=== PATIENT | male | born 1950 | race Caucasian/White ===

== ENCOUNTER 2019-11-09 05:24 | Observation (INO) ==
--- NOTE | 2019-10-13 16:08 | PAT Medication Instructions ---
Medication Instructions Date of Service October 13, 2019 Home Medications cholecalciferol (vitamin D3) [Vitamin D3] 25 mcg PO QAM vitamin B complex 1 tab PO QAM DO NOT take the morning of surgery cholecalciferol (vitamin D3) [Vitamin D3] 25 mcg PO QAM vitamin B complex 1 tab PO QAM Other Notes If you have any questions please call us at [phone] or [phone] or [phone] or [phone]
--- NOTE | 2019-10-14 12:27 | Anesthesiology Consultation ---
Date of Service October 14, 2019 Assessment & Plan (1) Encounter for pre-operative examination: COVID Status: As of 10/13 assessment, patient denies travel to endemic area, known exposure/sick contacts, or symptoms of COVID19. Patient instructed that they and their household members must follow strict social distancing guidelines, wear a mask in public and avoid travel for 14 days prior to surgery. Preoperative COVID19 testing to be completed prior to surgery per surgeon's arra ngements. Patient made aware to self-isolate as much as possible between COVID testing and surgery. Chart Review Chart Review: Acceptable Risk for Surgery and Patient seen in Pre Admission Testing Teaching & Discussion Instructed NPO after midnight before surgery, except medications with 15 cc of water. Medication instructions provided according to the PAT guidelines. History Surgery Operation Date: 11/09/19 09:20 Proposed Procedures p Right Total Knee Arthroplasty - Tae Ngo DO Height/Weight Height: 6 ft 2 in Weight: 105 kg Allergies Allergy/AdvReac Type Severity Reaction Status Date / Time adhesive tape Allergy Redness of Verified 10/07/19 12:40 Skin No Known Drug Allergies Allergy Verified 10/07/19 12:40 Medications Home Medications Medication Instructions Recorded Confirmed Last Taken cholecalciferol (vitamin D3) 25 mcg PO QAM 10/07/19 10/07/19 Unknown [Vitamin D3] vitamin B complex 1 tab PO QAM 10/07/19 10/07/19 Unknown Past Medical History Medical History (Updated 10/14/19 @ 12:31 by Edd Moncada) Hearing deficit BL RAZO History of anesthesia reaction "when I woke up, I felt like my throat was closing in on me" -- says this happened after prostatectomy in 1998 at [facility] and again approx 10 years ago following bowel resection at [facility], [place], operated by [facility]. Says given intra- op steroids since then and no issues. History of prostate cancer S/P 1998 RADICAL PROSTATECTOMY Ileostomy present Osteoarthritis Right bundle branch block Ruptured intervertebral disc Ulcerative colitis S/P RADICAL COLECTOMY/ILEOSTOMY FORMATION Past Family History Family History Grandmother Diabetes Other No family history of adverse response to anesthesia Past Surgical History Surgical History History of appendectomy History of arthroscopic surgery of shoulder Left History of bowel resection RADICAL, FOR UC. HAS ILEOSTOMY IN PLACE. History of cataract surgery History of colonoscopy History of esophagogastroduodenoscopy (EGD) History of laparotomy History of prostate biopsy History of radical prostatectomy History of sinus surgery x 2 Past Anesthesia History No Family Hx of Anesthesia Complications and Other "when I woke up, I felt like my throat was closing in on me" -- says this happened after prostatectomy in 1998 at [facility] and again approx 10 years ago following bowel resection at [facility], [place], operated by [facility]. Says given intra-op steroids since then and no issues. History of PONV No Hx of PONV and No Hx of Motion Sickness Social History Smoking Status: Never smoker Do You Dip or Chew Tobacco: No Hx Alcohol Use: Yes alcohol intake frequency: holidays/special occasions only Hx Substance Use: No substance use type: does not use Review of Systems Pt denies any recent chest pain, shortness of breath, palpitations, cough, fever, URI. + occasional acid reflux, relieved with Tums or Prilosec Physical Exam Vital Signs BP: 142/83 P: 67bpm SPO2: 95% RA T: 97.9 F R: 16 ENMT Mouth: + small oral opening (poor jaw ROM); no dental restorations, no chipped teeth and no loose teeth Thyromental Distance: > or= 3.5 Finger Breadths Mallampati Class: II Neck normal visual inspection; neck extension not limited Respiratory normal respiratory effort Auscultation: lungs clear to auscultation bilaterally Cardiovascular Rate/Rhythm: regular rate and regular rhythm Heart Sounds: no murmur Vessels: no carotid bruit Extremities: no edema Testing Laboratory Results 10/14/19 12:37 10/14/19 12:37 PT 10.7 Seconds (9.0-12.0) 10/14/19 12:37 INR 1.0 (0.9-1.1) 10/14/19 12:37 APTT 30.7 Seconds (21.0-31.0) 10/14/19 12:37 Blood Type A Positive 10/14/19 12:37 Antibody Screen NEGATIVE 10/14/19 12:37 Electrocardiogram Date: 10/14/19 Findings: + NSR @ (65bpm) and + RBBB Chest X-Ray Date: 10/14/19 Findings: + NAD
--- NOTE | 2019-10-14 13:16 | XRay Report ---
XR chest Pre-admission PA/Lat CLINICAL HISTORY: Preoperative evaluation. COMPARISON STUDY: No previous studies for comparison. FINDINGS: Lung volumes are normal. Minimal linear left basilar opacity suggest atelectasis. There is no pneumothorax or pleural effusion. Cardiac size is normal. Mediastinal contours are normal. There i s no evidence for pulmonary edema. IMPRESSION: No acute cardiopulmonary findings. ACT 112: Negative or not required by law. Electronically signed by: Herman Sotomayor M.D. 10/14/2019 1:15 PM
[2019-10-14 13:30] LABS: Basophils # (auto) 0.05 K/uL (0-0.2); Eosinophils # (auto) 0.23 K/uL (0-0.5); Eosinophils % (auto) 4.7 %; Hemoglobin 15.3 g/dL (14.0-18.0); Lymphocytes # (auto) 0.79 K/uL (1.2-3.4); Lymphocytes % (auto) 16.1 %; Mean Corpuscular Hemoglobin 30.7 pg (25-34); Mean Corpuscular Hgb Conc 34.8 g/dL (32-36); Mean Corpuscular Volume 88.2 fL (80-100); Mean Platelet Volume 8.9 fL (7.4-10.4); Monocytes # (auto) 0.66 K/uL (0.11-0.59); Monocytes % (auto) 13.4 %; Neutrophils # (auto) 3.18 K/uL (1.4-6.5); Neutrophils % (auto) 64.8 %; Platelet Count 261 K/uL (130-400); RDW Coefficient of Variation 12.7 % (11.5-14.5); RDW Standard Deviation 40.7 fL (36.4-46.3); Red Blood Count 4.99 M/uL (4.7-6.1); White Blood Count 4.91 K/uL (4.8-10.8)
[2019-10-14 13:37] LABS: BUN Creatinine Ratio 12.6 (10-20); Calcium 9.2 mg/dl (8.5-10.1); Creatinine Clr Calc Pharmacy 73.1 ml/min; Est GFR (African American) 68.1; Est GFR (Non-African American) 58.8; Potassium 4.1 mmol/L (3.5-5.1)
[2019-10-14 13:49] LABS: Partial Thromboplastin Ratio 1.1; Partial Thromboplastin Time 30.7 Seconds (21.0-31.0); Prothrombin Time 10.7 Seconds (9.0-12.0)
--- NOTE | 2019-10-14 16:25 | Electrocardiogram Report ---
Test Reason : Blood Pressure : / mmHG Vent. Rate : 065 BPM Atrial Rate : 065 BPM P-R Int : 158 ms QRS Dur : 140 ms QT Int : 440 ms P-R-T Axes : 075 -18 048 degrees QTc Int : 457 ms Normal sinus rhythm Right bundle branch block Abnormal ECG No previous ECGs available Confirmed by Matias Garcia ([id number]) on 10/14/2019 4:25:13 PM Referred By: Tae Ngo Confirmed By:Matias Garcia
--- NOTE | 2019-11-05 07:35 | History & Physical Report ---
Date of Service November 05, 2019 Assessment & Plan (1) Osteoarthritis of right knee: We will proceed with a right total knee arthroplasty. Postoperatively he will be started on aspirin for DVT prophylaxis and kept overnight in the hospital for postoperative medical management. He plans to use outpatient physical therapy upon discharge. Present on Admission?: Yes History of Present Illness Chief Complaint: Primary osteoarthritis of the right knee Primary Care Provider: Billy NewYas Blaze Smalls is a pleasant 69-year-old male who is been dealing with chronic increasing right knee pain. X-rays and clinical examination have been diagnostic for advanced osteoarthritis of the right knee. After failing conservative treatment, he has elected to proceed with a right total knee arthroplasty. Allergies Allergy/AdvReac Type Severity Reaction Status Date / Time adhesive tape Allergy Redness of Verified 10/07/19 12:40 Skin No Known Drug Allergies Allergy Verified 10/07/19 12:40 Home Medications Home Medications Medication Instructions Recorded Confirmed Type cholecalciferol (vitamin D3) 25 mcg PO QAM 10/07/19 10/07/19 History [Vitamin D3] vitamin B complex 1 tab PO QAM 10/07/19 10/07/19 History Past Med/Surg History Medical History Hearing deficit BL RAZO History of anesthesia reaction "when I woke up, I felt like my throat was closing in on me" -- says this happened after prostatectomy in 1998 at [facility] and again approx 10 years ago following bowel resection at [facility]. Says given intra- op steroids since then and no issues. History of prostate cancer S/P 1998 RADICAL PROSTATECTOMY Ileostomy present Osteoarthritis Right bundle branch block Ruptured intervertebral disc Ulcerative colitis S/P RADICAL COLECTOMY/ILEOSTOMY FORMATION Surgical History History of appendectomy History of arthroscopic surgery of shoulder Left History of bowel resection RADICAL, FOR UC. HAS ILEOSTOMY IN PLACE. History of cataract surgery History of colonoscopy History of esophagogastroduodenoscopy (EGD) History of laparotomy History of prostate biopsy History of radical prostatectomy History of sinus surgery x 2 Family History Grandmother Diabetes Other No family history of adverse response to anesthesia Social History Smoking Status: Never smoker Second Hand Exposure: No; Do You Dip or Chew Tobacco: No; Hx Alcohol Use: Yes Hx Substance Use: No Preferred Language: Marshallese Communication Ability: Effective Panel Laminator Required: No Beliefs That Will Affect Care: Jainism Jainism Beliefs: yazdanism Current Living Situation: Spouse Feels Safe at Home: Yes Safety Concerns: Feels Safe At This Time Review of Systems Review of Systems: All systems reviewed & are unremarkable except as noted in HPI & below Physical Exam Constitutional: WD/WN, vitals as above Eyes: PERRL, conjunctivae normal, anicteric sclerae ENMT: external ear and nose normal, oropharynx normal Neck: trachea midline, no thyromegaly Respiratory: normal respiratory effort Cardiovascular: RRR, no murmur, no edema Gastrointestinal (Abdomen): normal bowel sounds, soft, nontender, no hepatosplenomegaly Musculoskeletal: On physical examination of the right knee there is a trace effusion. There is near full range of motion and no evidence of instability. There is significant tenderness palpation along the medial and lateral joint lines and over the distal femoral condyles. Psychiatric: A+Ox3, euthymic affect Results & Data Results & Data ([place]) Diagnostic Findings Radiographs of the right knee demonstrate advanced osteoarthritis with joint space narrowing osteophyte formation and [id number] articulation. PG Care Time/CCT Total # of Minutes Spent Total Time Spent with Patient: Total time spent is greater than 50% in coordination of care (as documented) at patient's floor/unit and/or counseling patient: Coding Level of Care Code 88953 OBS Care - Level 2 Diagnoses Osteoarthritis of right knee M17.11
[2019-11-06 05:17] LABS: SARS CoV2 RNA (COVID-19) NOT DETECTED (NOT DETECTED)
[2019-11-09] MEDS ORDERED: LR 60ML/HR IV SCH (06:00)
[2019-11-09] MEDS ORDERED: TRANEXAMIC ACID 1,000 MG **IV Intra-op IV SCH (06:00)
[2019-11-09] MEDS ORDERED: LR 500ML BOLUS, THEN 15ML/HR IV SCH (06:00)
[2019-11-09] MEDS ORDERED: GABAPENTIN 300 MG CAP PO SCH (06:00)
[2019-11-09] MEDS ORDERED: ROPIVACAINE 0.5% HCL/PF 150 MG, BUPIVACAINE 0.5% MPF 30 ML, EPINEPHrine 30MG/30ML (OR U... INSTIL SCH (06:00)
[2019-11-09] MEDS ORDERED: TRANEXAMIC ACID 1,000 MG **IV Pre-op IV SCH (06:00)
[2019-11-09] MEDS ORDERED: ACETAMINOPHEN 500 MG TAB PO SCH (06:00)
[2019-11-09] MEDS ORDERED: ceFAZolin 2000MG 2,000 MG/15 ML SYR IV SCH (06:00)
[2019-11-09] MEDS ORDERED: FAMOTIDINE 20 MG TAB PO SCH (06:00)
[2019-11-09] MEDS ORDERED: dexAMETHasone 4 MG TAB PO SCH (06:00)
[2019-11-09] MEDS ORDERED: ROPIVACAINE 0.5% 5 MG/ML 30 ML VIAL ONE (06:25)
[2019-11-09] MEDS ORDERED: BUPIVACAINE 0.5 % 5 MG/1 ML PF 10ML VIAL ONE (06:25)
[2019-11-09] MEDS ORDERED: ATROPINE SULFATE 0.1 MG/ML 10ML SYR IV PRN (06:46)
[2019-11-09] MEDS ORDERED: ePHEDrine sulfate 50 MG/ML AMP IV PRN (06:46)
--- NOTE | 2019-11-09 06:50 | History & Physical Bridge Note ---
Date of Service November 09, 2019 History & Physical Bridge Note I have examined the patient, reviewed the History & Physical and in the interval since the performance of the History & Physical I have noted the following changes of clinical significance: no changes noted
[2019-11-09] MEDS ORDERED: MIDAZOLAM HCL 1 MG/ML 2ML VIAL ONE (06:55)
[2019-11-09] MEDS ORDERED: LIDOCAINE HCL 2% 2 ML VIAL/AMP(20MG/ML) INFIL ONE (06:55)
[2019-11-09] MEDS ORDERED: PROPOFOL IV EMULSION 10 MG/ML 20 ML VIAL IV ONE ×2 (06:55→08:39)
[2019-11-09] MEDS ORDERED: ORTHO JOINT ANESTHETIC ONE (07:00)
--- NOTE | 2019-11-09 08:51 | Operative Report ---
PG Post Operative Report Pre & Post Diagnosis Operation Date: 11/09/19 07:30 Pre-Op Diagnosis: Degenerative Joint Disease Right Knee Post-Op Diagnosis: Degenerative Joint Disease Right Knee I identified the patient and participated in the time-out.: Yes Procedure Operation Date: 11/09/19 07:30 Actual Procedures p Right Total Knee Arthroplasty, Cemented(Right) - Tae Ngo DO Surgeon Tae Ngo DO Energy Audit Advisor Tae Stevens PAC Estimated Blood Loss 10 Findings Consistent with Post-Op Diagnosis Specimens Right femoral and tibial bone Complications none Disposition Disposition: Recovery Room Indications Slim is a pleasant 69-year-old male who presented my office with chronic increasing right knee pain. X-rays and clinical examination were diagnostic for advanced osteoarthritis of the right knee. After failing conservative treatment, he elected to proceed with a right total knee arthroplasty. Description of Procedure Implants used: I used a Bria Persona total knee arthroplasty system with a size 12 standard femur, H tibia, 35 patella, and a size 11 medial congruent polyethylene bearing. All components were cemented in place with Palacos G cement. Slim arrived [facility] for the above procedure. He was seen in the preoperative holding area and the operative extremity was identified and signed. He was given a preoperative antibiotic, TXA, a spinal anesthetic and an adductor nerve block. He was taken back to the operating room and laid on the table in supine position. He was given basic sedation. The operative knee was then prepped and draped in sterile fashion. A timeout was done, and the patient and the operative extremity was properly identified. A midline incision was made directly over the patella. Dissection was taken d own to the extensor mechanism. A subvastus arthrotomy was used. The medial retinaculum was released and the fat pad was mostly excised. The knee was flexed and the ACL, PCL, and meniscus were removed. A drill was sent down the center of the femoral canal followed by an intramedullary marnie. Off that marnie a distal femoral cutting block was placed. 9 mm was resected off the distal femur at 5 of valgus. A posterior referencing AP sizing guide was then placed on the distal femur. The femur measured to be a size 12. 2 drill holes were placed in 3 of external rotation. A 4-in-1 cutting block was then impacted into place. Anterior, posterior, and chamfer cuts were then made. The proximal tibia was then exposed. An external tibial alignment guide was placed. A tibial cut guide was then anchored in place and the proximal tibia was then resected. The posterior aspect of the knee was then opened up and any additional meniscus fragments and osteophytes were removed. The tibia measured to be a size H. The tibial plate was then placed in the appropriate rotation and the tibia was drilled and punched. Trial components were then placed. I used a size 11 medial congruent polyethylene insert. The knee was brought through a full range of motion and felt to be stable. The peg holes for the femoral component were then drilled. The patella was then everted and 9 mm was resected off the posterior aspect of the patella. The patella measured to be a size 35. 3 peg holes were then drilled. A trial patella was placed. The knee was once again brought through a full range of motion and felt to be stable. Trial components were then removed. The surrounding soft tissues were injected with 100 cc of an orthopedic pain control cocktail. All components were then cemented into place with Palacos G cement. The final polyethylene insert was then snapped into place. Once cement was dry the tourniquet was deflated. Hemostasis was obtained. A dilute betadyne lavage was then done for 3 minutes. The joint was then irrigated with normal saline solution. The subvastus arthrotomy was then closed with #1 Vicryl suture. The skin was closed with 2-0 Vicryl, 3-0V lock suture, and sanjuana. A Silverlon and a soft compressive dressing were placed. He was then transferred to a hospital bed and taken to the postanesthesia care unit in stable condition. He tolerated the procedure well. Tae Stevens PA-C, was present for the entire procedure. He was critical for patient positioning, prepping, draping, retraction exposure, wound closure and application of sterile dressing. I attest to the content of the Intraoperative Record and any orders documented therein. Any exceptions are noted below.
--- NOTE | 2019-11-09 09:26 | Anesthesiology Progress Note ---
Date of Service November 09, 2019 Anesthesia Post Procedure Vital Signs Vital Signs: Temp Pulse Pulse Resp BP BP Pulse Ox 11/09/19 09:20 67 16 128/80 94 11/09/19 09:10 63 16 111/67 94 11/09/19 09:01 36.4 C L 73 16 140/85 92 11/09/19 06:57 57 L 18 131/83 96 11/09/19 05:52 36.6 C 57 L 20 147/88 H 96 Pain Intensity Right Knee: Pain Intensity: 0 Transfer of Care Handoff Completed per policy Notes Mental Status: alert / awake / arousable and participated in evaluation Patient Amnestic to Procedure: Yes Nausea / Vomiting: adequately controlled Pain: adequately controlled Airway Patency, RR, SpO2: stable & adequate BP & HR: stable & adequate Hydration State: stable & adequate Neuraxial Anesthesia: was administered and sensory block is resolving Anesthetic Complications: no major complications apparent
--- NOTE | 2019-11-09 09:27 | XRay Report ---
XR knee RT 1 or 2V routine CLINICAL HISTORY: Degenerative arthritis. Postoperative examination COMPARISON: 05/06/2019 DISCUSSION: There are postsurgical changes of a total right knee arthroplasty and patellar resurfacin g. The femoral and tibial components appear well seated. Overlying skin sanjuana are visualized. IMPRESSION: Postsurgical changes of a total right knee arthroplasty. ACT 112: Negative or not required by law. Electronically signed by: Cristobal Alexis M.D. 11/09/2019 9:26 AM
[2019-11-09] MEDS ORDERED: MAGNESIUM HYDROXIDE SUSP 30 ML UDC PO PRN (09:47)
[2019-11-09] MEDS ORDERED: bisacodyL 10 MG SUPP PR PRN (09:47)
[2019-11-09] MEDS ORDERED: NALOXONE HCL 0.4 MG/1 ML VIAL/CARP IV PRN (09:47)
[2019-11-09] MEDS ORDERED: ONDANSETRON INJ 2 MG/ML 2 ML VIAL IV PRN (09:47)
[2019-11-09] MEDS ORDERED: HYDROmorphone INJ 0.5 MG/0.5 ML SYR IV PRN (09:47)
[2019-11-09] MEDS ORDERED: oxyCODONE HCL IR 5 MG TAB (IMMEDIATE RELEASE) PO PRN (09:47)
[2019-11-09] MEDS ORDERED: METOCLOPRAMIDE HCL INJ 5 MG/ML 2 ML VIAL IV PRN (09:47)
[2019-11-09] MEDS ORDERED: PNEUMOCOCCAL POLYSACCHARIDES 25 MCG/0.5 ML VIAL/SYR IM ONE (09:55)
[2019-11-09] MEDS ORDERED: PNEUMOCOCCAL ADMINISTRATION CHARGE ONE (09:55)
[2019-11-09] MEDS: SODIUM CHLORIDE 0.9% 1000ML 1,000 ML IV SCH ×2 (10:33→19:36)
[2019-11-09] MEDS: KETOROLAC TROMETHAMINE 15 MG/ML VIAL IV SCH ×3 (10:42→21:19)
[2019-11-09] MEDS: ACETAMINOPHEN 500 MG TAB PO SCH ×2 (13:47→21:19)
[2019-11-09] MEDS: ceFAZolin 2000MG 2,000 MG/15 ML SYR IV SCH ×2 (15:04→22:13)
[2019-11-09] MEDS: DOCUSATE SODIUM 100 MG CAP PO SCH (19:37)
[2019-11-09] MEDS ORDERED: SENNA 8.6 MG TAB PO SCH (21:00)
[2019-11-09] MEDS: ASPIRIN 81 MG ECTAB PO SCH (21:19)
[2019-11-10] MEDS: ACETAMINOPHEN 500 MG TAB PO SCH ×2 (05:18→13:04)
[2019-11-10] MEDS: KETOROLAC TROMETHAMINE 15 MG/ML VIAL IV SCH ×2 (05:18→09:09)
[2019-11-10] MEDS: SODIUM CHLORIDE 0.9% 1000ML 1,000 ML IV SCH (05:48)
[2019-11-10 06:18] LABS: Hematocrit (blood only) 39.6 % (42-52); Mean Corpuscular Hemoglobin 31.3 pg (25-34); Mean Corpuscular Hgb Conc 35.4 g/dL (32-36); Mean Corpuscular Volume 88.4 fL (80-100); Mean Platelet Volume 8.8 fL (7.4-10.4); Platelet Count 267 K/uL (130-400); RDW Coefficient of Variation 12.7 % (11.5-14.5); RDW Standard Deviation 40.7 fL (36.4-46.3); Red Blood Count 4.48 M/uL (4.7-6.1); White Blood Count 15.89 K/uL (4.8-10.8)
--- NOTE | 2019-11-10 06:52 | Orthopedic Progress Note ---
Date of Service November 10, 2019 Assessment & Plan (1) Status post right knee replacement: Overall he is doing well. Is not having much pain in the right knee. He will be seen by physical therapy again today for ambulation and range of motion exercises. He is on aspirin for DVT prophylaxis. He can be discharged home later today. He will follow-up with orthopedics in 2 weeks. Present on Admission?: Yes Admission and Anticipated Discharge Date Admission Date: November 09, 2019 Sharon Smalls was seen and examined at bedside this morning. Overall he is doing very well. Is not having much pain in the right knee. He is already been walking around the [facility] station. He has no complaints. Physical Exam Musculoskeletal: On physical examination of the right knee, the dressing is clean and dry. His legs out in full extension. He has active dorsiflexion and plantarflexion of the right ankle. Results & Data ([facility]) Vital Signs (Past 12 Hours) Vital Signs Temp Pulse Pulse Resp BP Pulse Ox 11/10/19 02:09 36.4 C L 77 18 148/81 H 92 11/09/19 23:09 36.5 C 55 L 18 129/70 97 11/09/19 20:44 36.5 C 69 16 143/87 H 96 Laboratory Results H & H 10/14/19 11/10/19 Range/Units 12:37 05:41 Hgb 15.3 14.0 (14.0-18.0) g/dL Hct 44.0 39.6 L (42-52) % Coagulation 10/14/19 Range/Units 12:37 INR 1.0 (0.9-1.1) Diagnostic Findings Postoperative x-rays of the right knee show the prosthesis to be in anatomic alignment without any evidence of fracture, dislocation, or loosening. PG Care Time/CCT Total # of Minutes Spent Total Time Spent with Patient: Total time spent is greater than 50% in coordination of care (as documented) at patient's floor/unit and/or counseling patient: Coding Level of Care Code None Diagnoses Status post right knee replacement Z96.651
--- NOTE | 2019-11-10 06:53 | Discharge Summary ---
Date of Service November 10, 2019 Admission HPI Per Admitting Provider Slim is a pleasant 69-year-old male who is been dealing with chronic increasing right knee pain. X-rays and clinical examination have been diagnostic for advanced osteoarthritis of the right knee. After failing conservative treatment, he has elected to proceed with a right total knee arthroplasty. Principal Diagnosis Right total knee arthroplasty Discharge Data Allergies Allergy/AdvReac Type Severity Reaction Status Date / Time No Known Drug Allergies Allergy Mild Verified 11/09/19 05:50 adhesive tape Allergy Redness of Verified 11/09/19 05:50 Skin Consultations 11/09/19 09:47 Consult Case Management - Discharge Planning Routine Procedures Performed Operation Date: 11/09/19 07:30 Actual Procedures p Right Total Knee Arthroplasty, Cemented(Right) - Tae Ngo DO Ordered Studies 11/09/19 05:00 US - OR guided needle placemen Routine Hospital Course (1) Status post right knee replacement: On November 09, 2019 Slim arrived at [facility] and underwent a right knee replacement without complication. He had a spinal anesthetic. Postoperatively he was started on aspirin for DVT prophylaxis and transferred to the general hepatic floors. His hospital course was uneventful. On postop day #1 his H&H was stable and his pain was well controlled. He was able to participate well with physical therapy doing ambulation and range of motion exercises. He was then discharged home. He will follow-up with orthopedics in 2 weeks. Total Time Total Time Spent Total Time Spent (In Minutes): 20 Discharge Plan Discharge Items Patient Disposition: Home - Home Health Services Reason For Visit: DJD Right Knee Discharge Diagnosis: Right total knee arthroplasty Activity: As commented below Non-emergency contact: Surgeon Call non-emergency contact if: your wound has increased redness and your wound has increased drainage Follow-up/Referrals: Billy Thakur M.D. [Primary Care Provider] - Diet: Regular Addtl Attending Provider Instructions: Activity and Therapy Recommendations: * If you are using [facility] then therapy will be provided at your home until they feel you have accomplished all of your goals. * If you are using [facility] then Physical Therapy will be provided until they feel you are ready to start Outpatient Physical Therapy. * If you are not using home therapy then Outpatient Physical Therapy should start about 3-5 days from your day of surgery. Therapy will last about 6-10 weeks * It is important not to put a pillow under your knee when you are relaxing or sleeping. It is just as important to make sure you are getting your knee perfectly straight as it is to regain your knee bend. * You were shown a series of exercises in the hospital. Do these exercises three times each day including the exercises you were shown in physical therapy. * Get up and walk several times each day. For the first four weeks, try not to stand or walk for more than one hour at a time. If you do stand or walk for more than one hour, you will not hurt anything, but your leg will likely swell. * As you feel comfortable, you may change from the walker or crutches to a cane and then to independent walking. Medications: * Narcotic You will likely be sent home from the hospital with a prescription for the narcotic pain medication that worked best throughout your stay. * Aspirin Most patients will be required to take Aspirin 81mg twice a day for 6 weeks after surgery. This is obtained [id number] and a prescription is not necessary. * Other medications may be prescribed for specific circumstances. If you have any questions, please call the office at . * Resume previous home medications unless otherwise instructed TEDs/Elastic Stockings: The white elastic stockings help limit swelling and prevent blood clots from forming in your legs.~ The more you wear them, the more they work. Wear them for six weeks. Dressing Care: Leave the Silverlon dressing in place for 7 days. After 7 days you may remove the dressing. If the incision is not draining then you may leave the sanjuana open to air. If there is a little bit of drainage or if the sanjuana are getting stuck on your clothing then cover the incision with a dry dressing. The sanjuana will be removed at your 2 week follow-up appointment. Showering: You may shower with the Silverlon dressing in place. Do not let the shower spray hit the dressing directly. Pat the Silverlon dressing dry. If the dressing becomes wet underneath, then simply remove the dressing. Keep the incision dry until you are 7 days out from the day of surgery. After 7 days you may remove the Silverlon dressing and shower with the sanjuana exposed. Let soapy water run over the sanjuana and pat them dry. Do not scrub or soak the incision. Things To Watch For: * Drainage from the incision site that occurs more than one week after your surgery. * Increased redness at the incision site. * Fever above 102 degrees Fahrenheit. * Unusual chest pain or shortness of breath. * Call [facility] at with any of the above problems Follow-Up Visit: Follow-up with Dr. Ngo's PA (Tae Stevens) 2-3 weeks after your day of surgery. He will remove your sanjuana and answer any questions. If you have any additional questions or concerns, Dr Ngo is usually in the office at the same time and will be available An appointment was probably scheduled when you signed-up for surgery in the office. If you have any questions call Office Instructions: More detailed instructions as well as Frequently Asked Questions were provided in a folder by our office when you signed-up for surgery. Please review these instructions when you get home. If you have any further questions or concerns, please feel free to call the office at [phone] Pending Studies at Discharge: No Stand-Alone Forms: [facility], Smoking Cessation Medications and DC Order Prescriptions: New oxycodone 5 mg Tablet 5 mg PO Q4H PRN (Reason: pain) Qty: 30 RF: 0 aspirin 81 mg Tablet,Delayed Release (Dr/Ec) 81 mg PO BID 42 Days Qty: 0 RF: 0 Continued vitamin B complex Tablet 1 tab PO QAM RF: 0 cholecalciferol (vitamin D3) [Vitamin D3] 25 mcg (1,000 unit) Tablet 25 mcg PO QAM RF: 0 Discharge Orders: Discharge Order (Routine); Ordered 11/10/19 Ordered By: Tae Ngo Admission Data Admit Date/Time: 11/09/19 09:04 Attending Provider: Tae Ngo Admit Provider: Tae Ngo Primary Care Provider: Billy Thakur Coding Level of Care Code D/C Day Management <30 mins Diagnoses Status post right knee replacement Z96.651
[2019-11-10 06:54] LABS: BUN Creatinine Ratio 15.8 (10-20); Creatinine Clr Calc Pharmacy 77.2 ml/min; Est GFR (African American) 73.3; Est GFR (Non-African American) 63.2; Potassium 3.9 mmol/L (3.5-5.1)
[2019-11-10] MEDS ORDERED: dexAMETHasone 4 MG TAB PO SCH (08:00)
[2019-11-10] MEDS ORDERED: MULTIVITAMIN TAB PO SCH (09:00)
[2019-11-10] MEDS: ASPIRIN 81 MG ECTAB PO SCH (09:08)
[2019-11-10] MEDS: DOCUSATE SODIUM 100 MG CAP PO SCH (09:11)
== END 2019-11-10 13:43 | disposition home health service (06) ==
LOC: ASU 05:24 → 3E 05:24

== ENCOUNTER 2022-08-06 07:01 | Observation (INO) ==
--- NOTE | 2022-06-28 12:48 | PAT Medication Instructions ---
Medication Instructions Date of Service June 28, 2022 Home Medications Medication Instructions Recorded Dana Thomas #1 ea 11/10/19 vitamin B complex 1 tab PO QAM Vitamin D3 500 unit PO QAM aspirin 81 mg capsule 81 mg PO QAM metoprolol succinate 50 mg tablet,extended release 24 hr 25 mg PO QAM omeprazole 20 mg tablet,delayed release 20 mg PO QAM DO NOT take the morning of surgery vitamin B complex 1 tab PO QAM Vitamin D3 500 unit PO QAM Take morning of surgery With a small sip of water, OTHERWISE NOTHING TO EAT OR DRINK AFTER MIDNIGHT: aspirin 81 mg capsule 81 mg PO QAM (unless directed otherwise by surgeon) metoprolol succinate 50 mg tablet,extended release 24 hr 25 mg PO QAM omeprazole 20 mg tablet,delayed release 20 mg PO QAM Other Notes If you have any questions please call us at [phone] or [phone] or [phone] or [phone]
--- NOTE | 2022-07-04 12:18 | Anesthesiology Consultation ---
Date of Service July 04, 2022 Assessment & Plan (1) Encounter for pre-operative examination: Chart Review Chart Review: Acceptable Risk for Surgery and Patient seen in Pre Admission Testing - Due to comorbidities- patient is NOT an ideal Outpatient Joint candidate Per PAT appt on 07/04/22, patient denies any recent travel or large group activities. Pt is vaccinated for Covid. Will leave to surgeon's discretion if preop Covid testing needed. Educated on importance of using Covid precautions one week prior to surgery Pt seen by cardio 04/16/22= History of CAD. Here for follow up. HTN/HLD. CAD- currently asymptomatic. HLD- well controlled. Continue current medical therapy. Aggressive risk factor modification. Increase activity and exercise. Follow up in six months Right TKA 11/09/19= Done SAB at L3-4 with 1 attempt (no anesthesia issues per patient and records) Teaching & Discussion Pre-Anesthesia Teaching/Discussion Notes: Instructed NPO after midnight before surgery,except medications with 15 cc of water. Medication instructions provided according to the PAT guidelines. History Surgery Operation Date: 08/06/22 12:50 Proposed Procedures p Left Total Knee Arthroplasty - Tae Ngo, Height/Weight Height: 6 ft 2 in Weight: 118.4 kg Allergies Allergy/AdvReac Type Severity Reaction Status Date / Time adhesive tape Allergy Mild Redness of Verified 06/26/22 13:22 Skin No Known Drug Allergies Allergy Mild Verified 06/26/22 13:22 Medications Home Medications Medication Instructions Recorded Confirmed Last Taken vitamin B complex 1 tab PO QAM 10/07/19 06/26/22 11/07/19 08:00 Wheeled Walker #1 ea 11/10/19 Unknown Vitamin D3 500 unit PO QAM 06/26/22 06/26/22 Unknown aspirin 81 mg capsule 81 mg PO QAM 06/26/22 06/26/22 Unknown metoprolol succinate 50 mg 25 mg PO QAM 06/26/22 06/26/22 Unknown tablet,extended release 24 hr omeprazole 20 mg tablet,delayed 20 mg PO QAM 06/26/22 06/26/22 Unknown release Past Medical History Medical History Agent orange exposure CAD (coronary artery disease) Per cardio records- asymptomatic Per 02/09/21 cath- LAD 20-35%; OM2 25%; RCA 20-35% GERD (gastroesophageal reflux disease) Well controlled and stable with med Hearing deficit BL RAZO Bilateral hearing aids History of COVID-19 11/2021--mild (was on paxlovid)--no symptoms now History of prostate cancer S/P 1998 RADICAL PROSTATECTOMY No chemo or XRT HLD (hyperlipidemia) Diet controlled Ileostomy present No current issues Right bundle branch block Ruptured intervertebral disc Lumbar area- getting injections Sleep apnea cpap Ulcerative colitis S/P RADICAL COLECTOMY/ILEOSTOMY FORMATION Exercise / Class Metabolic Activity III < 4 Walking/Shop/Light housework (one flight of stairs - no chest pain- mild SOB ) Past Family History Family History Grandmother Diabetes Other No family history of adverse response to anesthesia Past Surgical History Surgical History History of anesthesia reaction "when I woke up, I felt like my throat was closing in on me" -- says this happened after prostatectomy in 1998 at [facility] and again approx 10 years ago following bowel resection at [facility]. Says given intra- op steroids since then and no issues. History of appendectomy History of arthroscopic surgery of shoulder Left History of bowel resection RADICAL, FOR UC. HAS ILEOSTOMY IN PLACE. History of cardiac cath 02/09/2021--[facility]--no stents--follows with Dr. Byron Robert History of cataract surgery History of colonoscopy History of esophagogastroduodenoscopy (EGD) History of laparotomy History of prostate biopsy History of radical prostatectomy History of sinus surgery x 2 Status post right knee replacement (~10/2019) Past Anesthesia History No Hx of Anesthesia Complications (with exception to throat closing sensation with prostatectomy and colectomy - improved with intraoperative steroids ) and No Family Hx of Anesthesia Complications History of PONV No Hx of PONV and No Hx of Motion Sickness Social History Smoking Status: Never smoker Do You Dip or Chew Tobacco: No Hx Alcohol Use: Yes alcohol intake frequency: holidays/special occasions only Hx Substance Use: No substance use type: does not use Review of Systems Patient denies chest pain, shortness of breath, dyspnea on exertion, cough, wheezing, palpitations. No hx of seizures, stroke, [place]. No hx of blood clots or blood transfusions Physical Exam Vital Signs VITALS BP 152/90 P 60 TEMP 97.5 SP02 95% RESP 16 Constitutional no acute distress ENMT Mouth: no TMJ clicking Thyromental Distance: > or= 3.5 Finger Breadths (4.0) Mallampati Class: III Neck + limited neck extension Respiratory normal respiratory effort; no respiratory distress Auscultation: lungs clear to auscultation bilaterally; no wheezes Cardiovascular Rate/Rhythm: regular rate and regular rhythm Heart Sounds: no murmur Vessels: no carotid bruit Musculoskeletal Spine: no pain with cervical ROM Extremities: extremities normal to inspection Psychiatric Orientation: alert Lab Results Anesthesia Preop Results Results Anesthesia Widget: WBC 5.38 K/ul (4.8-10.8) 07/04/22 Hgb 15.3 g/dl (14.0-18.0) 07/04/22 Hct 44.5 % (42.0-52.0) 07/04/22 Plt 243 K/uL (130-400) 07/04/22 Na 138 mmol/L (136-145) 07/04/22 K 4.9 mmol/L (3.5-5.1) 07/04/22 Cl 106 mmol/L (98-107) 07/04/22 CO2 27 mmol/L (21-32) 07/04/22 BUN 19 mg/dl (6-23) 07/04/22 Creat 1.22 mg/dl (0.6-1.4) 07/04/22 Glucose Level 92 mg/dl (70-99(Fasting)) 07/04/22 PT 10.3 Seconds (9.0-12.0) 07/04/22 PTT 27.1 Seconds (21.0-31.0) 07/04/22 INR 0.9 (0.9-1.1) 07/04/22 Blood Type A Positive 07/04/22 Antibody Screen NEGATIVE 07/04/22 Testing Electrocardiogram Date: 07/04/22 Findings: + SB @ (53bpm ) and + no change from (October 14, 2019 per cardio ) RBBB Chest X-Ray Date: 07/04/22 FINDINGS: PA and lateral chest radiographs are compared to study dated 10/14/2019. The heart is enlarged noting atherosclerotic calcification of the thoracic aorta. The pulmonary vasculature is noncongested. Chronic interstitial thickening is similar to previous. There is bibasilar scarring/atelectasis. No airspace consolidation or pleural effusion is identified. There is no pneumothorax. The skeletal structures are osteopenic. The bony thorax appears intact. IMPRESSION: Cardiomegaly with no active disease in the chest. Cardiac Catheterization Date: 02/09/21 Mid lesion in LAD 20% Ostial lesion in LAD 35% Proximal lesion in 2nd OM 25% Ostial lesion in RCA 20% Mid lesion in RCA 35% COVID-19 Risk Screen Screening Information COVID-19 Screen Date: 07/04/22 Exposure 21 Days Family/Household +COVID Last 21 Days: No Exposure 10 Days Any COVID Exposure Last 10 Days: No Symptoms Last 10 Days Experienced COVID Sx Last 10 Days: No + COVID 0-90 Days COVID + in Last 0-90 Days: No Risk Plan COVID Risk Plan: No Risk Identified Patient Education COVID Preop Screening Education Complete: Yes
--- NOTE | 2022-08-02 13:13 | History & Physical Report ---
Date of Service August 02, 2022 Assessment & Plan (1) Osteoarthritis of left knee: We will proceed with a left total knee arthroplasty. Postoperatively he will be started on aspirin for DVT prophylaxis and kept overnight in the hospital for postop medical management. He plans to go to outpatient physical therapy upon discharge. History of Present Illness Chief Complaint: Osteoarthritis of the left knee. Primary Care Provider: Popeye Donahue DO Slim is a pleasant 71-year-old male, who I did a right knee replacement on in 2019. He is doing fairly well with that. He still has a little bit of pain going up and down stairs. Unfortunately, he is dealing with a lot of left knee pain. He has known osteoarthritis of his left knee. He has been seeing my PA. He has had injections. He is really struggling with his left knee. After failing extensive conservative treatment, he has elected proceed with a left total knee arthroplasty. Allergies Allergy/AdvReac Type Severity Reaction Status Date / Time adhesive tape Allergy Mild Redness of Verified 06/26/22 13:22 Skin No Known Drug Allergies Allergy Mild Verified 06/26/22 13:22 Home Medications Medication Instructions Recorded Confirmed Type vitamin B complex 1 tab PO QAM 10/07/19 06/26/22 History Wheeled Walker #1 ea 11/10/19 Rx Vitamin D3 500 unit PO QAM 06/26/22 06/26/22 History aspirin 81 mg capsule 81 mg PO QAM 06/26/22 06/26/22 History metoprolol succinate 50 mg 25 mg PO QAM 06/26/22 06/26/22 History tablet,extended release 24 hr omeprazole 20 mg tablet,delayed 20 mg PO QAM 06/26/22 06/26/22 History release Past Med/Surg History Medical History Agent orange exposure CAD (coronary artery disease) Per cardio records- asymptomatic Per 02/09/21 cath- LAD 20-35%; OM2 25%; RCA 20-35% GERD (gastroesophageal reflux disease) Well controlled and stable with med Hearing deficit BL RAZO Bilateral hearing aids History of COVID-19 11/2021--mild (was on paxlovid)--no symptoms now History of prostate cancer S/P 1998 RADICAL PROSTATECTOMY No chemo or XRT HLD (hyperlipidemia) Diet controlled Ileostomy present No current issues Right bundle branch block Ruptured intervertebral disc Lumbar area- getting injections Sleep apnea cpap Ulcerative colitis S/P RADICAL COLECTOMY/ILEOSTOMY FORMATION Surgical History History of anesthesia reaction "when I woke up, I felt like my throat was closing in on me" -- says this happened after prostatectomy in 1998 at [facility] and again approx 10 years ago following bowel resection at [facility]. Says given intra- op steroids since then and no issues. History of appendectomy History of arthroscopic surgery of shoulder Left History of bowel resection RADICAL, FOR UC. HAS ILEOSTOMY IN PLACE. History of cardiac cath 02/09/2021--[facility]--no stents--follows with Dr. 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 Physical Exam On physical examination of the left knee, he has a slight varus deformity. He has range of motion from 5 to 115 degrees. He has pain of the distal femoral condyles.. Constitutional WD/WN, vitals as above Eyes PERRL, conjunctivae normal, anicteric sclerae ENMT external ear and nose normal, oropharynx normal Neck trachea midline, no thyromegaly Respiratory normal respiratory effort, lungs clear to auscultation Cardiovascular RRR, no murmur, no edema Gastrointestinal (Abdomen) normal bowel sounds, soft, nontender, no hepatosplenomegaly Skin no rashes, warm and dry Psychiatric A+Ox3, euthymic affect Results & Data Results & Data Laboratory Results . Diagnostic Findings X-rays of the left knee show advanced osteoarthritis with joint space narrowing, osteophyte formation, and [id number] articulation.. PG Care Time/CCT Total # of Minutes Spent Total Time Spent with Patient: Total time spent is greater than 50% in coordination of care (as documented) at patient's floor/unit and/or counseling patient: Coding Level of Care Code None Diagnoses Osteoarthritis of left knee M17.12
[~2022-08-06 07:01] MED LIST: ACETAMINOPHEN 500 MG TAB PO SCH; FAMOTIDINE 20 MG TAB PO SCH; GABAPENTIN 300 MG CAP PO SCH; LR 500ML BOLUS, THEN 15ML/HR IV SCH; LR 60ML/HR IV SCH; ORTHO JOINT MIX INFIL SCH; ROPIVACAINE 0.5% 5 MG/ML 30 ML VIAL ONE; TRANEXAMIC ACID 1,000 MG **IV Intra-op IV SCH; TRANEXAMIC ACID 1,000 MG **IV Pre-op IV SCH; ceFAZolin 2000MG 2,000 MG/15 ML SYR IV SCH; dexAMETHasone 4 MG TAB PO SCH
[2022-08-06] MEDS ORDERED: PROPOFOL IV EMULSION 10 MG/ML 20 ML VIAL IV ONE (08:21)
[2022-08-06] MEDS ORDERED: LIDOCAINE 2% 2 ML VIAL/AMP(20MG/ML) INFIL ONE (08:21)
--- NOTE | 2022-08-06 08:21 | History & Physical Bridge Note ---
Date of Service August 06, 2022 History & Physical Bridge Note I have examined the patient, reviewed the History & Physical and in the interval since the performance of the History & Physical I have noted the following changes of clinical significance: no changes noted
[2022-08-06] MEDS ORDERED: MIDAZOLAM HCL 1 MG/ML 2ML VIAL ONE (08:22)
[2022-08-06] MEDS ORDERED: ORTHO JOINT ANESTHETIC ONE (08:50)
[2022-08-06] MEDS ORDERED: ATROPINE SULFATE 0.1 MG/ML 10ML SYR IV PRN (09:02)
[2022-08-06] MEDS ORDERED: ONDANSETRON INJ 2 MG/ML 2 ML VIAL IV PRN ×2 (09:02→12:27)
[2022-08-06] MEDS ORDERED: ePHEDrine sulfate 50 MG/ML AMP IV PRN (09:02)
[2022-08-06] MEDS ORDERED: KETOROLAC 30 MG/ML VIAL IV PRN (09:02)
[2022-08-06] MEDS ORDERED: HYDROmorphone INJ 1 MG/ML SYRINGE IV PRN (09:02)
[2022-08-06] MEDS ORDERED: FAMOTIDINE/PF 20 MG/2 ML VIAL IV ONE (09:20)
[2022-08-06] MEDS ORDERED: ONDANSETRON INJ 2 MG/ML 2 ML VIAL ONE (09:26)
[2022-08-06] MEDS ORDERED: diphenhydrAMINE 50 MG/ML VIAL ONE (09:26)
[2022-08-06] MEDS ORDERED: DEXAMETHASONE SOD INJ 4 MG/ML VIAL ONE (09:26)
--- NOTE | 2022-08-06 10:30 | Operative Report ---
PG Post Operative Report Pre & Post Diagnosis Operation Date: 08/06/22 09:00 Pre-Op Diagnosis: Left Knee Osteoarthritis Post-Op Diagnosis: Left Knee Osteoarthritis I identified the patient and participated in the time-out.: Yes Procedure Operation Date: 08/06/22 09:00 Actual Procedures p Left Total Knee Arthroplasty(Left) - Tae Ngo DO Surgeon Tae Ngo DO Hand [employer] Tae Stevens PA-C Estimated Blood Loss 30 Findings Consistent with Post-Op Diagnosis Specimens Left femoral and tibial bone Description of Procedure Implants used: I used a Bria Persona total knee arthroplasty system with a size 12 standard femur, H tibia, 37 oval patella, and a size 11 medial congruent polyethylene bearing. All components were cemented in place with Biomet cement. Slim arrived [facility] for the above procedure. He was seen in the preoperative holding area and the operative extremity was identified and signed. He was given a preoperative antibiotic, TXA, a spinal anesthetic and an adductor nerve block. He was taken back to the operating room and laid on the table in supine position. He was given basic sedation. The operative knee was then prepped and draped in sterile fashion. A timeout was done, and the patient and the operative extremity was properly identified. A midline incision was made directly over the patella. Dissection was taken down to the extensor mechanism. A midvastus arthrotomy was used. The medial retinaculum was released and the fat pad was mostly excised. The knee was flexed and the ACL, PCL, and meniscus were removed. A drill was sent down the center of the femoral canal followed by an intramedullary marnie. Off that marnie a distal femoral cutting block was placed. 9 mm was resected off the distal femur at 5 of valgus. A posterior referencing AP sizing guide was then placed on the distal femur. The femur measured to be a size 12. 2 drill holes were placed in 3 of external rotation. A 4-in-1 cutting block was then impacted into place. Anterior, posterior, and chamfer cuts were then made. The proximal tibia was then exposed. An external tibial alignment guide was placed. A tibial cut guide was then anchored in place and the proximal tibia was then resected. The posterior aspect of the knee was then opened up and any additional meniscus fragments and osteophytes were removed. The tibia measured to be a size H. The tibial plate was then placed in the appropriate rotation and the tibia was drilled and punched. Trial components were then placed. I used a size 11 medial congruent polyethylene insert. The knee was brought through a full range of motion and felt to be stable. The peg holes for the femoral component were then drilled. The patella was then everted and 9 mm was resected off the posterior aspect of the patella. The patella measured to be a size 37 oval. 3 peg holes were then drilled. A trial patella was placed. The knee was once again brought through a full range of motion and felt to be stable. Trial components were then removed. The surrounding soft tissues were injected with 100 cc of an orthopedic pain control cocktail. All components were then cemented into place with Biomet cement. The final polyethylene insert was then snapped into place. Once cement was dry the tourniquet was deflated. Hemostasis was obtained. A dilute betadyne lavage was then done for 3 minutes. The joint was then irrigated with normal saline solution. The midvastus arthrotomy was then closed with #1 Vicryl suture. The skin was closed with 2-0 Vicryl, 3-0V lock suture, and sanjuana. A soft compressive dressing was placed. He was then transferred to a hospital bed and taken to the postanesthesia care unit in stable condition. He tolerated the procedure well. Tae Stevens PA-C, was present for the entire procedure. He was critical for patient positioning, prepping, draping, retraction exposure, wound closure and application of sterile dressing. I attest to the content of the Intraoperative Record and any orders documented therein. Any exceptions are noted below.
--- NOTE | 2022-08-06 11:29 | XRay Report ---
XR knee LT 1 or 2V routine HISTORY: 71 years-old Male Surgical Post Op left knee arthroplasty COMPARISON: 07/04/2022 TECHNIQUE: 2 views of the left knee FINDINGS: Total joint arthroplasty with patellar resurfacing. Anterior midline skin sanjuana are present along w ith expected postoperative soft tissue swelling and deep tissue air. No acute fracture, dislocation o r intra-articular loose body identified. IMPRESSION: Total joint arthroplasty with expected postoperative changes. ACT 112: Negative or not required by law. The above report was generated using voice recognition software. It may contain grammatical, syntax o r spelling errors. Electronically signed by: Kevon Rose M.D. 08/06/2022 11:27 AM
--- NOTE | 2022-08-06 12:08 | Anesthesiology Progress Note ---
Date of Service August 06, 2022 Anesthesia Post Procedure Vital Signs Vital Signs: Temp Pulse Pulse Resp BP Pulse Ox O2 Del Method 08/06/22 12:00 56 L 21 135/89 95 Nasal Cannula 08/06/22 11:50 53 L 24 129/83 96 Nasal Cannula 08/06/22 11:40 60 17 131/85 96 Nasal Cannula 08/06/22 11:30 57 L 23 115/82 96 Nasal Cannula 08/06/22 11:20 47 L 16 115/82 95 Nasal Cannula 08/06/22 11:10 48 L 16 120/72 96 Nasal Cannula 08/06/22 11:00 58 L 19 128/80 96 Nasal Cannula 08/06/22 10:53 36 C L 71 15 125/84 93 Room Air 08/06/22 07:15 36.7 C 67 18 158/96 H 94 Room Air O2 Flow Rate 08/06/22 12:00 2 08/06/22 11:50 2 08/06/22 11:40 2 08/06/22 11:30 2 08/06/22 11:20 2 08/06/22 11:10 2 08/06/22 11:00 2 08/06/22 10:53 08/06/22 07:15 Pain Intensity Left Knee: Pain Intensity: 5 Transfer of Care Handoff Completed per policy Notes Mental Status: alert / awake / arousable Patient Amnestic to Procedure: Yes Nausea / Vomiting: adequately controlled Pain: adequately controlled Airway Patency, RR, SpO2: stable & adequate BP & HR: stable & adequate Hydration State: stable & adequate Anesthetic Complications: no major complications apparent
[2022-08-06] MEDS ORDERED: bisacodyL 10 MG SUPP PR PRN (12:27)
[2022-08-06] MEDS ORDERED: SODIUM CHLORIDE 0.9% 1000ML 1,000 ML IV SCH (12:27)
[2022-08-06] MEDS ORDERED: METOCLOPRAMIDE HCL INJ 5 MG/ML 2 ML VIAL IV PRN (12:27)
[2022-08-06] MEDS ORDERED: MAGNESIUM HYDROXIDE SUSP 30 ML UDC PO PRN (12:27)
[2022-08-06] MEDS ORDERED: HYDROmorphone INJ 0.5 MG/0.5 ML SYR IV PRN (12:27)
[2022-08-06] MEDS ORDERED: NALOXONE HCL 0.4 MG/1 ML VIAL/CARP IV PRN (12:27)
[2022-08-06] MEDS ORDERED: oxyCODONE HCL IR 5 MG TAB (IMMEDIATE RELEASE) PO PRN (12:27)
[2022-08-06] MEDS: KETOROLAC TROMETHAMINE 15 MG/ML VIAL IV SCH ×2 (13:18→18:42)
[2022-08-06] MEDS: ACETAMINOPHEN 500 MG TAB PO SCH ×2 (14:42→21:18)
[2022-08-06] MEDS: ceFAZolin 2000MG 2,000 MG/15 ML SYR IV SCH (17:29)
[2022-08-06] MEDS ORDERED: SENNA 8.6 MG TAB PO SCH (21:00)
[2022-08-06] MEDS: ASPIRIN 81 MG ECTAB PO SCH (21:19)
[2022-08-06] MEDS: DOCUSATE SODIUM 100 MG CAP PO SCH (21:20)
[2022-08-06 22:46] VITALS: O2SAT 96
[2022-08-07] MEDS: KETOROLAC TROMETHAMINE 15 MG/ML VIAL IV SCH ×2 (01:18→06:22)
[2022-08-07] MEDS: ceFAZolin 2000MG 2,000 MG/15 ML SYR IV SCH (01:18)
[2022-08-07] MEDS: ACETAMINOPHEN 500 MG TAB PO SCH (06:21)
[2022-08-07 06:37] VITALS: BP 119/68; PULSE 71; TEMP 98.1
--- NOTE | 2022-08-07 06:46 | Orthopedic Progress Note ---
Date of Service August 07, 2022 Assessment & Plan (1) Status post left knee replacement: Overall he is doing very well. He is not having much pain in his left knee. He will be seen by physical therapy today for ambulation and range of motion exercises. He is on aspirin for DVT prophylaxis. He can be discharged home later today. He will follow-up with orthopedics in 2 weeks. Sharon Smalls was seen and examined at bedside this morning. Overall is doing fairly well. He is not having much pain in the left knee. He has been up and ambulating around the room. He has no complaints.. Review of Systems All systems reviewed & are unremarkable except as noted in HPI & below. Physical Exam On physical examination of the left knee, the dressing is clean and dry. He is sitting at bedside. He has active dorsiflexion plantarflexion of his left ankle.. Results & Data Results & Data Laboratory Results . Diagnostic Findings Postoperative x-rays of the left knee show the prosthesis to be in anatomic alignment without any evidence of fracture, dislocation, or loosening.. PG Care Time/CCT Total # of Minutes Spent Total Time Spent with Patient: Total time spent is greater than 50% in coordination of care (as documented) at patient's floor/unit and/or counseling patient: Coding Level of Care Code 16095 Post Operative Follow-Up Diagnoses Status post left knee replacement Z96.652
--- NOTE | 2022-08-07 06:47 | Discharge Summary ---
Date of Service August 07, 2022 Admission HPI (Per Admitting) Slim is a pleasant 71-year-old male, who I did a right knee replacement on in 2019. He is doing fairly well with that. He still has a little bit of pain going up and down stairs. Unfortunately, he is dealing with a lot of left knee pain. He has known osteoarthritis of his left knee. He has been seeing my PA. He has had injections. He is really struggling with his left knee. After failing extensive conservative treatment, he has elected proceed with a left total knee arthroplasty. Admission Exam (Per Admitting) On physical examination of the left knee, he has a slight varus deformity. He has range of motion from 5 to 115 degrees. He has pain of the distal femoral condyles.. Principal Diagnosis Same as "Discharge Diagnosis" noted below under Discharge Instructions. Discharge Exam On physical examination of the left knee, the dressing is clean and dry. He is sitting at bedside. He has active dorsiflexion plantarflexion of his left ankle.. Discharge Data Procedures Performed Operation Date: 08/06/22 09:00 Actual Procedures p Left Total Knee Arthroplasty(Left) - Tae Ngo DO Ordered Studies 08/06/22 05:00 US - OR guided needle placemen Routine Hospital Course (1) Status post left knee replacement: On August 06, 2022 Slim arrived at [facility] and underwent a left knee replacement without complication. He had a spinal anesthetic. Postoperatively he was started on aspirin for DVT prophylaxis and transferred to the general orthopedic floors. His hospital course was uneventful. On postop day #1, his vital signs were stable and his pain was well controlled. He was able to participate well with physical therapy doing ambulation and range of motion exercises. He was then discharged home. He will follow-up with orthopedics in 2 weeks. PG Care Time/CCT Total # of Minutes Spent Total Time Spent with Patient: Total time spent is greater than 50% in coordination of care (as documented) at patient's floor/unit and/or counseling patient: Discharge Plan Discharge Items Patient Disposition: Home - Home Health Services Reason For Visit: DJD Left Knee Discharge Diagnosis: Left knee replacement Activity: Per Instructions section Non-emergency contact: Surgeon Call non-emergency contact if: your wound has increased redness and your wound has increased drainage Follow-up/Referrals: Popeye Donahue DO [Primary Care Provider] - Diet: Regular Addtl Attending Provider Instructions: Activity and Therapy Recommendations: * If you are using [facility] then therapy will be provided at your home until they feel you have accomplished all of your goals. * If you are using [facility] then Physical Therapy will be provided until they feel you are ready to start Outpatient Physical Therapy. * If you are not using home therapy then Outpatient Physical Therapy should start about 3-5 days from your day of surgery. Therapy will last about 6-10 weeks * It is important not to put a pillow under your knee when you are relaxing or sleeping. It is just as important to make sure you are getting your knee perfectly straight as it is to regain your knee bend. * You were shown a series of exercises in the hospital. Do these exercises three times each day including the exercises you were shown in physical therapy. * Get up and walk several times each day. For the first four weeks, try not to stand or walk for more than one hour at a time. If you do stand or walk for more than one hour, you will not hurt anything, but your leg will likely swell. * As you feel comfortable, you may change from the walker or crutches to a cane and then to independent walking. Medications: * Narcotic You will likely be sent home from the hospital with a prescription for the narcotic pain medication that worked best throughout your stay. * Aspirin Most patients will be required to take Aspirin 81mg twice a day for 6 weeks after surgery. This is obtained [id number] and a prescription is not necessary. * Other medications may be prescribed for specific circumstances. If you have any questions, please call the office at . * Resume previous home medications unless otherwise instructed TEDs/Elastic Stockings: The white elastic stockings help limit swelling and prevent blood clots from forming in your legs.~ The more you wear them, the more they work. Wear them for six weeks. Dressing Care: The dressing can be changed after physical therapy on postop day #1. Daily dry dressing changes for a few days, especially if the incision is still draining some. If the incision is not draining then you may leave the sanjuana open to air. If there is a little bit of drainage or if the sanjuana are getting stuck on your clothing then cover the incision with a dry dressing. The sanjuana will be removed at your 2 week follow-up appointment. Showering: You may shower 5 days from the day of surgery as long as the incision is no longer draining. You may shower with the sanjuana exposed. Let soapy water run over the sanjuana and pat them dry. Do not scrub or soak the incision. Things To Watch For: * Drainage from the incision site that occurs more than one week after your surgery. * Increased redness at the incision site. * Fever above 102 degrees Fahrenheit. * Unusual chest pain or shortness of breath. * Call [facility] at with any of the above problems Follow-Up Visit: Follow-up with Dr. Nog's PA (Tae Stevens) 2-3 weeks after your day of surgery. He will remove your sanjuana and answer any questions. If you have any additional questions or concerns, Dr Ngo is usually in the office at the same time and will be available An appointment was probably scheduled when you signed-up for surgery in the office. If you have any questions call Office Instructions: More detailed instructions as well as Frequently Asked Questions were provided in a folder by our office when you signed-up for surgery. Please review these instructions when you get home. If you have any further questions or concerns, please feel free to call the office at [phone] Pending Studies at Discharge: No Stand-Alone Forms: [facility], Smoking Cessation Medications and DC Order Prescriptions: New oxycodone-acetaminophen 5-325 mg tablet 1 tab PO Q6H PRN (Reason: pain) Qty: 30 0RF Continued (DME) Wheeled Walker Misc See Rx Instructions .MEDSUPPLY Qty: 1 0RF Rx Instructions: As directed vitamin B complex Tablet 1 tab PO QAM Vitamin D3 500 unit PO QAM metoprolol succinate 50 mg Tablet Extended Release 24 Hr 25 mg PO QAM omeprazole 20 mg Tablet,Delayed Release (Dr/Ec) 20 mg PO QAM Changed aspirin 81 mg Capsule 81 mg PO BID 42 Days Qty: 0 0RF Admission Data Admit Date/Time: 08/06/22 10:58 Attending Provider: Tae Ngo Admit Provider: Huber,Tae A Primary Care Provider: Popeye Donahue
[2022-08-07] MEDS: ASPIRIN 81 MG ECTAB PO SCH (07:43)
[2022-08-07] MEDS: DOCUSATE SODIUM 100 MG CAP PO SCH (07:43)
[2022-08-07] MEDS ORDERED: dexAMETHasone 4 MG TAB PO SCH (08:00)
[2022-08-07] MEDS ORDERED: METOPROLOL SUCC 25MG EXT REL TAB PO SCH (09:00)
[2022-08-07] MEDS ORDERED: PANTOprazole 40 MG TAB PO SCH (09:00)
[2022-08-07] MEDS ORDERED: MULTIVITAMIN TAB PO SCH (09:00)
== END 2022-08-07 11:12 | disposition home health service (06) ==
LOC: 3E 07:01 → ASU 07:01